=== PATIENT | female | born 1960 | race Caucasian/White ===

== ENCOUNTER 2022-05-21 09:22 | Outpatient (CLI) | payer OTHER, SELFPAY ==
[2022-05-21 14:48] LABS: SARS PCR* Negative SARS-CoV-2 (Negative)
== END 2022-05-21 09:23 | disposition home or self-care (01) ==
LOC: FBOREF 09:22
PROVIDERS: Visit Provider Orthopaedic Surgery
DX: Z20.822 Contact with and (suspected) exposure to COVID-19 (principal)
CPT/HCPCS: 87635

== ENCOUNTER 2022-05-22 06:34 | Day surgery (SDC) | payer OTHER, SELFPAY ==
[2022-05-22] VITALS (19 sets, daily range): BP systolic 89–133; BP diastolic 45–80; PULSE 50–75; RESP 14–20; TEMP 36.1–36.7; O2SAT 85–96; BMI 42.0
[2022-05-22] MEDS: LACTATED RINGERS 1000 ML 1,000 ML 100 ML IV ×2 (07:00→09:13)
[2022-05-22] MEDS: SODIUM CHLORIDE 0.9 % (FLUSH) 10 ML SYRINGE IVF ×2 (07:00→10:33)
[2022-05-22] MEDS: ETHYL CHLORIDE 1 APPLICATION 1 APPLIC TOPICAL (07:00)
[2022-05-22] MEDS: CELECOXIB 200 MG CAPSULE PO (07:10)
[2022-05-22] MEDS: ACETAMINOPHEN 500 MG TABLET 1000 MG PO (07:10)
[2022-05-22] MEDS: OXYCODONE (CR) 10 MG TAB.ER.12H PO (07:10)
[2022-05-22] MEDS: MIDAZOLAM HCL 1 MG/ML inj IVP (07:20)
[2022-05-22] MEDS: fentaNYL 100 MCG/2 ML inj IVP (07:20)
--- NOTE | 2022-05-22 07:34 | SUR.PREOP ---
TIME?OUT:?18, right shoulder PT/RN/MDA?VERIFICATION?OF?SURGICAL?SITE,?PROCEDURE,?AND?CONSENT OBTAINED?PRIOR?TO?INVASIVE?PROCEDURE.
[2022-05-22] MEDS: SODIUM CHLORIDE IRRIG SOLUTION 3,000 ML, EPINEPHrine 1 MG IRRIGATION (09:01)
--- NOTE | 2022-05-22 09:39 | PM.ORPRC ---
Procedure Note Date of procedure: 05/22/22 Procedure: SURGEON: Oracio Gordon MD STRE[facility] DISPATCHER: Naya Coyle PA-C PREOPERATIVE DIAGNOSIS: Right shoulder rotator calcific tendinitis , AC joint arthrosis POSTOPERATIVE DIAGNOSIS: Right shoulder rotator calcific tendinitis, AC joint arthrosis NAME OF OPERATION: Right shoulder arthroscopic subacromial decompression, distal clavicle excision, calcific tendinitis debridement, mini open rotator cuff repair ANESTHESIA: Supraclavicular block plus general endotracheal ESTIMATED BLOOD LOSS: 5 mL COMPLICATIONS: None SPECIMENS: None DRAINS: None PREOPERATIVE ANTIBIOTICS: Ancef 3 grams INDICATIONS: The patient is a 61-year-old female with a history of right shoulder pain secondary to the above diagnoses. Despite appropriate non operative management, they continue to have symptoms. Operative intervention was recommended. The risks, benefits and expected outcomes were discussed in detail. These included but were not limited to: Infection, bleeding, injury to blood vessel or nerve, venous thromboembolism. All questions were answered to their satisfaction. PROCEDURE: A supraclavicular block was placed by Anesthesia. General anesthesia was administered. The patient was placed in the high beach chair position. The right shoulder was prepped and draped in the usual sterile fashion. The glenohumeral joint was infiltrated with 20 mL of normal saline with epinephrine. The posterior portal was established, the arthroscope was introduced. The anterior portal was established, Diagnostic arthroscopy was performed with findings as follows: The biceps and biceps anchor are intact. The anterior, posterior and superior labrum are normal. Articular surfaces on the humeral head and glenoid are normal. There are no loose bodies. The undersurface of the rotator cuff is intact. The arthroscope was placed in the subacromial space, the lateral portal was established. The Arthrex [place] was used to dissect the acromion free. The CA ligament was recessed off the anterior acromion, the AC joint was exposed. The acromioplasty was performed with the bur in the posterior portal. The bur was then placed in the lateral portal and the lateral and anterior aspect of the acromion were resected. The undersurface of the distal clavicle was resected through the lateral portal. Finally, the bur was placed in the anterior portal and the remainder of the distal clavicle was resected for a total of 10 mm. An accessory anterolateral portal was placed. The subacromial/subdeltoid bursa was aggressively debrided. The bursal surface of the rotator cuff shows a marked amount of hyperemia, but other is otherwise intact. There are many foci of calcific deposits in the supraspinatus, into the infraspinatus. These were aggressively debrided with the shaver, resulting in a near full-thickness tear of the supra and infraspinatus. The few remaining joint surface fibers that were remaining intact were taken down with [place], creating a small full-thickness tear. Arthroscopic instruments were removed. The lateral portal was extended proximally and distally, subcutaneous dissection was taken with electrocautery to the deltoid. The deltoid was divided in line with its fibers. The static retractor was placed. The subacromial/subdeltoid bursa was debrided with the Hanley scissors. The greater tuberosity was debrided to punctate bleeding bone using the arthroscopic bur. Two Arthrex BioComposite SwiveLock anchors were placed just off the articular surface. Both limbs of the FiberWire and fiber tape were passed using the scorpion. A fiber link was placed in the leading edge of the rotator cuff x2. We tied the 2 central FiberWire sutures over the rotator cuff. We then proceeded with a lateral row of SwiveLock anchors x 2 crossing the FiberTape and incorporating the FiberWire and fiber link into each lateral row anchor. This provides an anatomic, watertight repair of the rotator cuff. There is no tension on the repair with the shoulder at 0? abduction. The wound was irrigated with normal saline off the pump. The deltoid was repaired with an 0 Vicryl in an interrupted [id number] fashion. Subcutaneous tissues were closed with a 3-0 Vicryl. Skin was closed with a 3-0 Monocryl in a subcuticular fashion. A dry dressing, polar care and sling were applied. Sponge and needle counts were correct x2. The patient tolerated the procedure well. There were no apparent complications. They were carefully transferred to the hospital bed and taken to the postanesthesia care unit in satisfactory condition. PLAN: The patient will be discharged to home. No active range of motion of the shoulder will be allowed for 6 weeks postoperatively. They can work on active range of motion of the elbow, wrist and fingers. They will follow up in the office next week for a wound check and an AP and transscapular Y-view of the shoulder prior to being seen.
--- NOTE | 2022-05-22 10:12 | W.ANESCHARGE ---
Anesthesia Charges Start Date/Time Anesthesia Start Date: 05/22/22 Anesthesia Start Time: 08:09 Stop Date/Time Anesthesia Stop Date: 05/22/22 Anesthesia Stop Time: 10:12 Summary Emergency: No
--- NOTE | 2022-05-22 10:42 | W.PM.NB ---
Nerve Block Nerve Block Time Seen by Provider: 07:30 Date Seen: 05/22/22 Type of block requested by surgeon for post-operative analgesia: interscalene Side: right Time out performed: Yes Verification of patient name: Yes Verification of date of : Yes Site marking: site marked Name of person performing procedure: [place] Continuous monitoring Was continuous monitoring of O2 sat, B/P, property assessment monitor, recorded every 15 minutes?: Yes Procedure Checklist: sterile prep, needles and gloves Ultrasound guided. Images saved: Yes Medications given in 5ml increments after negative aspiration: Ropivicaine %: 0.5 mL: 20 Needle gauge: 22 Decadron (mg): 10 Precedex (mcg): 25 Patient tolerated procedure well: Yes Block Charges Block Charge (with Pro Fee): Brachial Plexus Use of Ultrasound Machine for Block: Yes- US Guidance/pain block
--- NOTE | 2022-05-22 10:43 | W.ANESCHARGE ---
Anesthesia Charges Start Date/Time Anesthesia Start Date: 05/22/22 Anesthesia Start Time: 08:09 Stop Date/Time Anesthesia Stop Date: 05/22/22 Anesthesia Stop Time: 10:12 Summary Emergency: No
== END 2022-05-22 09:36 | disposition home or self-care (01) ==
PROVIDERS: Visit Provider Orthopaedic Surgery
PROC: (CPT 23412; principal; 2022-05-22 08:00)
DX: M75.101 Unspecified rotator cuff tear or rupture of right shoulder, not specified as traumatic (principal); M75.21 Bicipital tendinitis, right shoulder; M19.011 Primary osteoarthritis, right shoulder
CPT/HCPCS: 29826; 29824; 29822; 23412; 01630; 64415; 76942; A9270; C1713; J0171; J1100; J2250; J2405; J2704; J2710; J2795; J3010; J7120; L3670